=== PATIENT | male | born 1970 | race Hispanic/Latino ===

== ENCOUNTER → 2025-01-05 | Emergency (ER) | payer OTHER ==
[~2025-01-05] VITALS: Ht 175.3 cm; Wt 99.3 kg
[~2025-01-05] MED LIST: CLIN-141 PO; IOHEXOL 350 MG/ML 100ML INFUS..BTL IV ONE
--- NOTE | 2025-01-05 17:56 | ERN ---
ED Note History of Present Illness Stated Complaint: ABSCESS Chief Complaint: Abscess Time Seen by MD: 17:42 Time Seen by Midlevel: 17:42 Dictation: The patient is a 54 year old male with history of DM, cholecystectomy who presents to the emergency department with complaints of abscess to rectum and gluteal that he noticed yesterday. Patient denies any fevers. Allergies: Coded Allergies: Penicillins (Unverified Allergy, Unknown, 01/05/25) Home Meds Active Scripts Clindamycin HCl (Clindamycin HCl) 300 Mg Capsule, 1 CAP PO QID for 10 Days, #40 CAP 0 Refills Prov:ANTIONE PRASAD INTERVENTIONAL PHYSICIAN 01/05/25 Past Medical History Past Medical History: High Cholesterol Surgical History: Other RN Note Reviewed/Agreed w/PFSH: Yes Review of System Dictation Constitutional: Negative for fever,chills, and weight loss Eyes: Negative for injury, pain,redness, and discharge ENT: Negative for injury,pain or swelling Cardiovascular: Negative for chest pain, palpitations, and edema Respiratory: Negative for shortness of breath, cough, and wheezing, Abdomen/GI: Negative for abdominal pain, nausea, vomiting, diarrhea, and constipation Back: Negative for injury and pain : Negative for injury, bleeding and discharge MS/Extremity: Negative for injury and deformity Skin: Negative for rash, and discoloration positive for abscess to rectum, gluteal Neuro: Negative for headache, weakness, numbness, tingling, and seizure Psych: Negative for suicide ideation, homicidal ideation, and hallucinations Initial Vital Sign VS Vital Signs Date Time Temp Pulse Resp B/P (MAP) Pulse Ox O2 Delivery O2 Flow Rate FiO2 01/05/25 17:42 99.5 105 20 174/98 99 Room Air 01/05/25 18:04 0 21 Physical Exam Dictation Vital Signs reviewed General Appearance: Alert, oriented x 3, no acute distress, well developed, nourished. Head and Face: non-traumatic. Eyes: PERRL, pink conjunctivas, eyelid no trauma, anterior chamber with arcus senilis. Ears: Pinnas intact and no signs of trauma or erythema ear canals clear and no discharge TM no erythema Nose: No discharge, no bleeding. Oropharynx: Mouth normal, tongue pink. pharynx clear,no erythema, tonsils no exudates, no abscesses noted, mucous membrane moist Neck: Supple, non-tender, no thyromegaly, no masses, no JVD, no bruits Breast:Deferred Chest:No tenderness, no crepitus, no paradoxical movement, no retractions Lungs:Clear, well-ventilated, symmetric, no rales, no wheezing, no rhonchi, no stridor, good breath sounds bilaterally Heart: Regular rate, regular rhythm, no murmur, no gallops Vascular: no peripheral edema, Abdomen: Soft, positive bowel sounds, nondistended, no guarding, nontender, no rebound, no masses no hepatomegaly, no splenomegaly, no Quiñonez's sign, no hernias. Rectal: Deferred Genital: Deferred Neurological: Normal speech, motor function intact, sensory function intact Musculoskeletal: Neck nontender, full range of motion, back nontender, full range of motion, Extremities: nontender, full range of motion Skin: Color pink, dry, no turgor, no rash, no lacerations, no abrasions, no contusions., abscess noted to right gluteal area your rectum, no drainage Lymphatic: Deferred Results (Laboratory/Radiology) Laboratory/Radiology Laboratory Tests Test 01/05/25 17:56 01/05/25 18:29 01/05/25 18:52 01/05/25 19:15 White Blood Count 12.1 K/uL (4.8-10.8) H Red Blood Count 4.58 MIL/uL (4.50-6.20) Hemoglobin 14.4 g/dL (14.0-18.0) Hematocrit 40.6 % (42-54) L Mean Corpuscular Volume 88.6 fL (79-99) Mean Corpuscular Hemoglobin 31.4 pg (27.0-33.0) Mean Corpuscular Hemoglobin Concent 35.5 g/dL (32.0-36.0) Red Cell Distribution Width 13.1 % (11.0-15.5) Platelet Count 192 K/uL (130-400) Mean Platelet Volume 10.5 fL (7.5-10.5) Immature Granulocyte % (Auto) 0.4 % (0-1) Neutrophils (%) (Auto) 73.1 % (40.0-77.0) Lymphocytes (%) (Auto) 19.4 % (21.0-51.0) L Monocytes (%) (Auto) 5.5 % (3.0-13.0) Eosinophils (%) (Auto) 1.4 % (0.0-8.0) Basophils (%) (Auto) 0.2 % (0.0-5.0) Neutrophils # (Auto) 8.9 K/uL (1.8-7.7) H Lymphocytes # (Auto) 2.4 K/uL (1.0-4.8) Monocytes # (Auto) 0.7 K/uL (0.1-1.0) Eosinophils # (Auto) 0.17 K/uL (0.00-0.70) Basophils # (Auto) 0.03 K/uL (0.00-0.20) Absolute Immature Granulocyte (auto 0.05 K/uL (0-1) Nucleated Red Blood Cells 0.0 % (0.0-0.19) Sodium Level 137 mmol/L (136-145) Potassium Level 3.0 mmol/L (3.5-5.1) *L Chloride Level 99 mmol/L (101-111) L Carbon Dioxide Level 25 mmol/L (21-32) Blood Urea Nitrogen 8 mg/dL (7-18) Creatinine 1.1 mg/dL (0.5-1.3) Glomerular Filtration Rate Calc 81 mL/min (>90) Random Glucose 496 mg/dL (70-105) *H Lactic Acid Level 3.0 mmol/L (0.8-2.5) H Total Calcium 8.6 mg/dL (8.5-10.1) Magnesium Level 2.10 mg/dL (1.80-2.40) Urine Color COLORLESS (YELLOW) Urine Appearance CLEAR (CLEAR) Urine pH 6.5 (5.0-8.0) Urine Specific [place] 1.032 (1.001-1.031) Urine Protein NEGATIVE mg/dL (NEGATIVE) Urine Glucose (UA) >=1000 mg/dL (NEGATIVE) H Urine Ketones NEGATIVE mg/dL (NEGATIVE) Urine Occult Blood NEGATIVE (NEGATIVE) Urine Nitrate NEGATIVE (NEGATIVE) Urine Bilirubin NEGATIVE mg/dL (NEGATIVE) Urine Urobilinogen 0.2 mg/dL (0.2-1.0) Urine Leukocyte Esterase NEGATIVE Jett/uL Whole Blood Ketones Quantitative < 0.1 mmol/L (0.0-0.6) Blood Gas Specimen Type Arterial Arterial Blood pH 7.440 (7.350-7.450) Arterial Blood Partial Pressure CO2 36 mmHg (35-48) Arterial Blood Partial Pressure O2 64.7 mmHg (83.0-108.0) L Arterial Blood HCO3 24.0 mmol/L (21.0-28.0) Arterial Blood Oxygen Saturation 93.5 % (94.0-98.0) L Arterial Blood Base Excess 0.3 mmol/L (-2.0-3.0) Blood Gas Temperature 37.0 CELSIUS (35.5-37.0) Blood Gas Vent Mode RA (ROOM AIR) FiO2 21.0 % Blood Gas Specimen Comment RR,RN Test 01/05/25 21:15 01/05/25 21:57 Lactic Acid Level 1.3 mmol/L (0.8-2.5) Whole Blood Glucose 260 MG/DL (70-110) H REASON: r/o perirectal abscess ORDERING PHYSICIAN: ANTIONE PRASAD PROCEDURE: ABD PEL W - CT ABDOMEN/PELVIS W/CONTRAST EXAM: CT Abdomen and Pelvis with IV contrast CLINICAL HISTORY: r/o perirectal abscess TECHNIQUE: Axial computed tomography images of the abdomen and pelvis with intravenous contrast. CONTRAST: with intravenous contrast. COMPARISON: None provided. FINDINGS: LUNG BASES: The lung bases appear clear. No pleural effusions are seen. LIVER: Enlarged liver with fatty infiltration. GALLBLADDER AND BILE DUCTS: Cholecystectomy. No biliary ductal dilatation is evident. PANCREAS: Unremarkable. SPLEEN: Unremarkable. ADRENAL GLANDS: 3 cm indeterminate right adrenal nodule. A follow-up adrenal protocol CT or MRI is recommended. Normal left adrenal gland. KIDNEYS, URETERS, AND BLADDER: Normal kidneys. No hydronephrosis. STOMACH AND BOWEL: No bowel obstruction or inflammation. APPENDIX: Normal appendix. PERITONEUM: No free air, free fluid or fluid collection. LYMPH NODES: No lymphadenopathy is evident. REPRODUCTIVE: Unremarkable as visualized. VASCULATURE: No evidence of abdominal aortic aneurysm. BONES: No aggressive appearing osseous lesion. No acute osseous pathology evident. SOFT TISSUES: Subcutaneous fat stranding in the left inferior gluteal fold, consistent with cellulitis. No fluid collection. IMPRESSION: Subcutaneous fat stranding in the left inferior gluteal fold, consistent with cellulitis. No fluid collection. No bowel obstruction or inflammation. Normal appendix. Normal kidneys. No hydronephrosis. Enlarged liver with fatty infiltration. 3 cm indeterminate right adrenal nodule. A follow-up adrenal protocol CT or MRI is recommended. Normal left adrenal gland. /[facility] Labs Reviewed?: Yes ED Course ED Course Orders Procedure Category Date Status Time Cbc With Differential LAB 01/05/25 Complete 17:51 Blood Cult GLORIA 01/05/25 In Process 17:51 Urinalysis Profile LAB 01/05/25 Complete 17:51 Vancomycin 1g/250ml PHA 01/05/25 Complete Kit (Vancomycin 1g/2 18:00 Lactic Acid LAB 01/05/25 Complete 17:51 Basic Metabolic Panel LAB 01/05/25 Complete 17:51 0.9%Nacl 1000ml (Ns PHA 01/05/25 Complete 1000ml) 18:00 Ondansetron 4mg Inj PHA 01/05/25 Complete (Zofran 4mg Inj) 18:00 Morphine 4mg Syg PHA 01/05/25 Complete (Morphine 4mg Syg) 18:00 0.9%Nacl 1000ml (Ns PHA 01/05/25 In Process 1000ml) 18:30 Ct Abdomen/Pelvis CT 01/05/25 Resulted W/Contrast 18:36 Magnesium LAB 01/05/25 Complete 18:37 Potassium Bicarb/Cit PHA 01/05/25 Complete Ac 25meq (K-Lyte Ta 19:00 Arterial Blood Gas RT 01/05/25 Transmitted 18:42 Ketone Blood LAB 01/05/25 Complete Quantitative 18:42 Iohexol (Omnipaque) PHA 01/05/25 Complete 18:56 Arterial Blood Gas LAB 01/05/25 Complete 19:15 Insulin Regular, PHA 01/05/25 In Process Human 3ml (Humulin R 20:00 Lactic Acid (Removed) LAB 01/05/25 Complete 21:12 Current Medications Medications (Trade) Dose Ordered Sig/Yeni Route PRN Reason Start Time Stop Time Status Last Admin Dose Admin Insulin Human Regular (humuLIN R 100 UNIT/ML 3ML) 5 unit ONCE IV 01/05/25 20:00 01/05/25 23:59 01/05/25 20:10 Iohexol (Omnipaque) 35,000 mg STK-MED ONCE IV 01/05/25 18:56 01/05/25 18:56 DC Morphine Sulfate (morPHINE 4MG SYG) 4 mg ONCE IVP 01/05/25 18:00 01/05/25 22:00 DC 01/05/25 18:15 Ondansetron HCl (zoFRAN 4MG INJ) 4 mg ONCE IVP 01/05/25 18:00 01/05/25 22:00 DC 01/05/25 18:14 Potassium Bicarbonate (K-Lyte Tablet Eff 25 Meq Tablet.eff) 50 meq ONCE PO 01/05/25 19:00 01/05/25 23:00 DC 01/05/25 19:25 Sodium Chloride 1,000 ml @ 0 mls/hr ONCE IV 01/05/25 18:00 01/05/25 22:00 DC 01/05/25 18:14 Sodium Chloride 2,464 ml @ 821.333 mls/hr ONCE IV 01/05/25 18:30 01/06/25 18:29 01/05/25 18:32 Vancomycin HCl 250 ml @ 125 mls/hr ONCE IV 01/05/25 18:00 01/05/25 22:00 DC 01/05/25 18:15 Vital Signs Date Time Temp Pulse Resp B/P (MAP) Pulse Ox O2 Delivery O2 Flow Rate FiO2 01/05/25 21:40 98.4 92 18 158/89 99 Room Air* 0 21 01/05/25 19:37 98 18 179/95 100 Nasal Cannula* 2 28 01/05/25 19:24 89 20 N/Cannula Low lpm 2.0 28 01/05/25 18:04 98.8 104 16 158/89 98 Room Air* 0 21 01/05/25 17:42 99.5 105 20 174/98 99 Room Air Medical Decision Making MDM The patient is a 54 year old male with history of DM, cholecystectomy who presents to the emergency department with complaints of abscess to rectum and gluteal that he noticed yesterday. Patient denies any fevers. CBC showed leukocytosis, no anemia, chemistry showed hypokalemia, hyperglycemia, hypochloremia, elevated lactic acid blood gas with normal pH, no DKA, negative ketones CBC showed mild leukocytosis, no anemia, chemistry showed hypokalemia which was replaced, normal renal function, elevated blood glucose. Patient was given insulin and fluids. Mild hypochloremia, elevated lactic acid. No DKA. CT abdomen showed no collection but showed some cellulitis. Given patient's history of diabetes, uncontrolled hyperglycemia, elevated lactic acid I recommended patient admission to the hospital. At this time patient does not want to be admitted to the hospital and reports he has a flight to [place] tomorrow and was only here for a . Risks and benefits discussed with the patient and patient's who was at bedside including and worsening condition. All labs and imaging were discussed. At this time they continue to want to leave against medical advice. They report they were going to visit a hospital in [place]. Patient otherwise in no acute distress, nontoxic appearance. Patient was giving IV antibiotics and prescribed some antibiotics. Differential diagnosis: Perirectal abscess, sepsis, cellulitis DX & DISP Disposition: AMA Decision to Admit Date: Jan 05, 2025 Departure Condition: Stable Scripts Clindamycin HCl (Clindamycin HCl) 300 Mg Capsule 1 CAP PO QID for 10 Days, #40 CAP 0 Refills Prov: ANTIONE PRASAD 01/05/25 I have reviewed the case, and I agree with, Diagnosis and Plan ANTIONE PRASAD Jan 05, 2025 17:56
[2025-01-05 18:12] LABS: IMMATURE GRANULOCYTE ABSOLUTE 0.05 K/uL (0-1); NUCLEATED RED BLOOD CELLS 0.0 % (0.0-0.19); PLATELET COUNT (AUTO) 192 K/uL (130-400); RED BLOOD CELL COUNT(AUTO) 4.58 MIL/uL (4.50-6.20); RED CELL DISTRIBUTION WIDTH 13.1 % (11.0-15.5); WHITE BLOOD COUNT (AUTO) 12.1 K/uL (4.8-10.8)
[2025-01-05] MEDS: 0.9%NACL 1000ML 1,000 ML IV SCH (18:14)
[2025-01-05] MEDS: VANCOMYCIN 1G/250ML KIT 250 ML IV SCH (18:15)
[2025-01-05 18:27] LABS: CREATININE 1.1 mg/dL (0.5-1.3); GLOMERULAR FILTR. RATE CALC 81.0 mL/min (>90); SODIUM SERUM 137.0 mmol/L (136-145); UREA NITROGEN, BLOOD 8.0 mg/dL (7-18)
[2025-01-05 18:31] LABS: GLUCOSE,RANDOM 496.0 mg/dL (70-105)
[2025-01-05] MEDS: [UNRECOGNIZED DRUG - OTHER] IV SCH (18:32)
[2025-01-05 19:17] LABS: ABG BASE EXCESS 0.3 mmol/L (-2.0-3.0); ABG HCO3 24.0 mmol/L (21.0-28.0); ABG OXYGEN SATURATION 93.5 % (94.0-98.0); ABG PCO2 36 mmHg (35-48); ABG PH 7.440 (7.350-7.450); PO2, ARTERIAL BG 64.7 mmHg (83.0-108.0); TEMPERATURE, CELSIUS BG 37.0 CELSIUS (35.5-37.0); VENT MODE, BG RA (ROOM AIR)
[2025-01-05 19:21] LABS: ADD UA MICROSCOPIC NO; APPEARANCE,URINE CLEAR (CLEAR); GLUCOSE, URINE (UA) >=1000 mg/dL (NEGATIVE); LEUKOCYTE ESTERASE ,URINE NEGATIVE Leu/uL (NEGATIVE); NITRATE,URINE NEGATIVE (NEGATIVE); OCCULT BLOOD,URINE NEGATIVE (NEGATIVE)
[2025-01-05 19:24] VITALS: PULSE 89; RESP 20; O2SAT 98
--- NOTE | 2025-01-05 20:34 | HMCIMG ---
EXAM: CT Abdomen and Pelvis with IV contrast CLINICAL HISTORY: r/o perirectal abscess TECHNIQUE: Axial computed tomography images of the abdomen and pelvis with intravenous contrast. CONTRAST: with intravenous contrast. COMPARISON: None provided. FINDINGS: LUNG BASES: The lung bases appear clear. No pleural effusions are seen. LIVER: Enlarged liver with fatty infiltration. GALLBLADDER AND BILE DUCTS: Cholecystectomy. No biliary ductal dilatation is evident. PANCREAS: Unremarkable. SPLEEN: Unremarkable. ADRENAL GLANDS: 3 cm indeterminate right adrenal nodule. A follow-up adrenal protocol CT or MRI is recommended. Normal left adrenal gland. KIDNEYS, URETERS, AND BLADDER: Normal kidneys. No hydronephrosis. STOMACH AND BOWEL: No bowel obstruction or inflammation. APPENDIX: Normal appendix. PERITONEUM: No free air, free fluid or fluid collection. LYMPH NODES: No lymphadenopathy is evident. REPRODUCTIVE: Unremarkable as visualized. VASCULATURE: No evidence of abdominal aortic aneurysm. BONES: No aggressive appearing osseous lesion. No acute osseous pathology evident. SOFT TISSUES: Subcutaneous fat stranding in the left inferior gluteal fold, consistent with cellulitis. No fluid collection. IMPRESSION: Subcutaneous fat stranding in the left inferior gluteal fold, consistent with cellulitis. No fluid collection. No bowel obstruction or inflammation. Normal appendix. Normal kidneys. No hydronephrosis. Enlarged liver with fatty infiltration. 3 cm indeterminate right adrenal nodule. A follow-up adrenal protocol CT or MRI is recommended. Normal left adrenal gland. /[place]
[2025-01-05 21:40] VITALS: BP 158/89; PULSE 92; RESP 18; TEMP 98.4; O2SAT 99
--- NOTE | 2025-01-05 22:08 | NUR ---
PATIENT DECIDES NOT TO BE ADMITTED SINCE HE IS FROM [place] AND IS GOING BACK TOMORROW. WILL FOLLOW UP WITH HIS PCP ON ARRIVAL
== END ==
LOC: EDH 17:41
DX: K61.1 Rectal abscess (principal); E78.00 Pure hypercholesterolemia, unspecified; Z88.0 Allergy status to penicillin
CPT/HCPCS: 99285; 74177; 96365; 96375; 96361; 83735; 80048; 82803; 85025; 87040 ×2; 82948; 83605 ×2; 82010; 81003; 36415; 36600; J1815; J7030; J2405; J2270; J3373; Q9967